=== PATIENT | female | born 1980 | race Caucasian/White ===

== ENCOUNTER 2017-01-06 21:14 | Emergency (ER) | payer MEDICAID ==
[2017-01-06] MEDS ORDERED: Lactated Ringers 1,000 ML IV ONE (21:31)
[2017-01-06] MEDS ORDERED: Metoclopramide 10 MG/2 ML SDV IVPUSH ONE (21:32)
[2017-01-06] MEDS ORDERED: HYDROmorphone 2 MG/ML SDV IVPUSH ONE (21:32)
--- NOTE | 2017-01-06 21:39 | EDM.PDOC ---
ED HPI GI/ABDOMINAL - General Chief Complaint: Gastrointestinal Problem Stated Complaint: SIDE PAIN Time Seen by Provider: 01/06/17 21:20 Source: Reports: Patient History Limitations: Reports: No limitations - History of Present Illness INITIAL COMMENTS - FREE TEXT/NARRATIVE: 36 yo female here with RUQ pain since last night. Slept most of the day and ate little so didn't do too bad during the day. This evening ate Fettucini [place] and now has a significant increase in her pain associated with some mild nausea. No definite fever. PHx remarkable for a previous appendectomy. No self tx. Symptom Onset Date: 01/05/17 Timing/Duration: Reports: Hour(s):, Getting worse, Intermittent Location: RUQ Quality: Reports: ache, fullness Severity: moderate Improves with: Reports: other (none) Worsens with: Reports: other (eating, lying down) Context: Reports: other (RUQ pain, worse with eating fatty foods. ) Associated Symptoms (-Female): Reports: loss of appetite, nausea/vomiting (no vomiting). 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 (see below) (none) - Related Data Allergies/ADRs: Allergies Allergy/AdvReac Type Severity Reaction Status Date / Time No Known Allergies Allergy Verified 01/06/17 21:26 Home Meds: Home Meds Amitriptyline [Elavil] 50 mg PO BEDTIME 01/06/17 [History] Amoxicillin 875 mg PO BID 01/06/17 [History] Venlafaxine [Effexor XR] 150 mg PO DAILY 01/06/17 [History] ED ROS GENERAL - Review of Systems Review Of Systems: See Below Constitutional: Reports: decreased appetite HEENT: Reports: No symptoms Respiratory: Reports: No Symptoms Cardiovascular: Reports: No symptoms GI/Abdominal: Reports: Abdominal pain, Decreased appetite, Nausea. Denies: Black stool, Bloody stool, Constipation, Diarrhea, Distension, Hematemesis, Hematochezia, Melena, Stool incontinence, Vomiting : Reports: no symptoms Musculoskeletal: Reports: no symptoms Skin: Reports: no symptoms Neurological: Reports: No Symptoms Psychiatric: Reports: No symptoms ED EXAM, GI/ABD - Physical Exam Exam: See Below Exam Limited By: No limitations General Appearance: alert, WD/WN, no apparent distress, obese Eyes: bilateral: normal appearance Ears: normal external exam, normal canal, hearing grossly normal Nose: normal inspection, normal mucosa, no blood Throat/Mouth: Normal inspection, Normal lips, Normal oropharynx, Normal voice, No airway compromise Head: atraumatic, normocephalic Neck: normal inspection, supple Respiratory/Chest: no respiratory distress, lungs clear, normal breath sounds Cardiovascular: regular rate, rhythm, no edema GI/Abdominal: soft, no distention, tenderness (RUQ), guarding. No: distention, rebound Back Exam: normal inspection Extremities: normal inspection, normal range of motion, non-tender, no pedal edema Neurological: alert, oriented, CN II-XII intact, normal cognition, no motor/ sensory deficits Psychiatric: normal affect, normal mood Skin Exam: Warm, Dry, Intact, Normal color, No rash Lymphatic: no adenopathy Course - Vital Signs Text/Narrative:: LR 1000 ml IV, Dilaudid 0.5 mg IV, Reglan 10 mg IV-feeling much better. CT abdomen with contrast-fatty liver, gallstones, ? acute cholecystitis Last Recorded V/S: Last Vital Signs Temp 37.2 C 01/06/17 21:15 Pulse 89 01/06/17 21:15 Resp 20 01/06/17 21:15 BP 148/96 H 01/06/17 21:15 Pulse Ox 100 01/06/17 21:15 - Orders/Labs/Meds Orders: Active Orders 24 hr Category Date Time Status Abdomen w Cont [CT] Stat Exams 01/06/17 21:41 Taken Labs: Laboratory Tests 01/06/17 01/06/17 Range/Units 21:45 21:45 WBC 9.3 (4.5-12.0) X10-3/uL RBC 5.30 H (3.23-5.20) x10(6)uL Hgb 14.0 (11.5-15.5) g/dL Hct 42.7 (30.0-51.3) % MCV 80.4 (80-96) fL MCH 26.3 L (27.7-33.6) pg MCHC 32.8 (32.2-35.4) g/dL RDW 14.6 (11.5-15.5) % Plt Count 285 (125-369) X10(3)uL Sodium 135 (135-145) mmol/L Potassium 3.8 (3.5-5.3) mmol/L Chloride 102 (100-110) mmol/L Carbon Dioxide 25 (23-29) mmol/L BUN 12 (5-20) mg/dL Creatinine 0.6 (0.6-1.3) mg/dL Est Cr Clr Drug Dosing 91.32 mL/min Estimated GFR (MDRD) > 60 (>60) BUN/Creatinine Ratio 20.0 (9-20) Glucose 123 H (80-116) mg/dL Calcium 9.1 (8.6-10.2) mg/dL Total Bilirubin 1.0 (0.1-1.3) mg/dL AST 269 H (5-27) IU/L ALT 274 H (14-26) IU/L Alkaline Phosphatase 118 H (56-112) IU/L Total Protein 7.7 (6.0-8.0) g/dL Albumin 4.1 (3.5-5.2) g/dL Globulin 3.6 g/dL Albumin/Globulin Ratio 1.1 Meds: Medications Discontinued Medications Generic Name Dose Route Start Last Admin Trade Name Freq PRN Reason Stop Dose Admin Hydromorphone HCl 0.5 mg 01/06/17 21:32 01/06/17 21:50 Dilaudid IVPUSH 01/06/17 21:33 0.5 mg ONETIME ONE Administration Lactated Ringer's 1,000 mls @ 1,000 mls/hr 01/06/17 21:31 01/06/17 21:51 Ringers, Lactated IV 01/06/17 22:30 1,000 mls/hr BOLUS ONE Administration Iopamidol 112 ml 01/06/17 22:23 01/06/17 22:36 Isovue-370 (76%) IV 01/06/17 22:24 112 ml ONETIME ONE Administration Metoclopramide HCl 10 mg 01/06/17 21:32 01/06/17 21:56 Reglan IVPUSH 01/06/17 21:33 10 mg ONETIME ONE Administration Departure - Departure Time of Disposition: 23:15 Disposition: Home, Self-Care 01 Condition: good Clinical Impression: Right upper quadrant abdominal pain, Fatty liver, Gallstones, Elevated LFTs Referrals: PCP,None [Primary Care Provider] - Forms: ED Department Discharge Care Plan Goals: Take acetaminophen or [place] as needed for pain relief. Take Zofran as needed for nausea relief. Do not eat or drink after midnight. Return at 0830h tomorrow for a gallbladder ultrasound. - My Orders Last 24 Hours: My Active Orders 01/06/17 21:41 Abdomen w Cont [CT] Stat - Assessment/Plan Last 24 Hours: My Active Orders 01/06/17 21:41 Abdomen w Cont [CT] Stat
[2017-01-06] MEDS ORDERED: Iopamidol 755 MG/ML 150 ML Bottle IV ONE (22:23)
[2017-01-06] MEDS ORDERED: Acetaminophen/HYDROcodone 325-5 MG Tab PO ONE (23:11)
[2017-01-06] MEDS ORDERED: Ondansetron 4 MG Tab.DIS PO ONE (23:11)
[2017-01-06 23:29] VITALS: BP 105/62
== END 2017-01-06 23:20 | disposition home or self-care (01) ==
LOC: FB.ED 21:14
DX: K80.80 Other cholelithiasis without obstruction (principal); K76.0 Fatty (change of) liver, not elsewhere classified; R10.11 Right upper quadrant pain
CPT/HCPCS: 74160; 80053; 85027; 96361; 96374; 96375; 99284; A9270; J1170; J2765; J7120; Q9967